=== PATIENT | male | born 1945 | race Caucasian/White ===

== ENCOUNTER → 2018-01-13 | Outpatient (CLI) | payer OTHER, MEDICARE | LOC: BMCIMAGING 07:20 | PROVIDERS: ATTEND Urology | DX: N40.0 Benign prostatic hyperplasia without lower urinary tract symptoms (principal) ==

== ENCOUNTER 2018-02-11 10:46 | Observation (INO) | payer OTHER, MEDICARE ==
[~2018-02-11 10:46] MED LIST: OPIUM/BELLADONNA ALKALO SUPP PR PRN
[2018-02-11] MEDS ORDERED: ceFAZolin 3 GM in D5W 100 ML IV ONE (11:24)
[2018-02-11] MEDS ORDERED: LIDOCAINE 1% 2 ML INJ ID PRN (11:25)
[2018-02-11] MEDS ORDERED: LR 1,000 ML IV ONE (11:25)
[2018-02-11] MEDS ORDERED: LIDOCAINE 2% JELLY 20 ML (UROJECT) ONE (12:13)
--- NOTE | 2018-02-11 12:14 | PDHPUP ---
History & Physical Update H&P update statement: This history and physical update is based on an assessment of the patient which was completed after admission or registration (within 24 hours), but prior to the surgery/procedure. H&P update: H&P reviewed & patient examined, no change in patient's condition since H&P completed
[2018-02-11] MEDS ORDERED: ceFAZolin 2 GM/DEXTROSE 100 ML IV ONE (12:15)
[2018-02-11] MEDS ORDERED: ONDANSETRON 4 MG/2 ML VIAL IVP PRN (12:17)
[2018-02-11] MEDS ORDERED: HYDROmorphONE/DILAUDID 1 MG/ML INJ IVP PRN (12:17)
[2018-02-11] MEDS ORDERED: HYDROCODONE/APAP 5/325 TAB PO PRN ×2 (12:17→15:12)
[2018-02-11] MEDS ORDERED: D5W LR 1,000 ML IV SCH (12:30)
[2018-02-11] MEDS ORDERED: ANASTROZOLE 1 MG TAB PO SCH (12:30)
--- NOTE | 2018-02-11 12:39 | PDANEPAE ---
ANE History of Present Illness BPH here for TURP ANE Past Medical History - Cardiovascular History Hx Hypertension: No Hx Arrhythmias: No Hx Chest Pain: No Hx Coronary Artery / Peripheral Vascular Disease: No Hx CHF / Valvular Disease: No Hx Palpitations: No - Pulmonary History Hx COPD: No Hx Asthma/Reactive Airway Disease: No Hx Recent Upper Respiratory Infection: No Hx Oxygen in Use at Home: No Hx Sleep Apnea: No Sleep Apnea Screening Result - Last Documented: Negative - Neurologic History Hx Cerebrovascular Accident: No Hx Seizures: No Hx Dementia: No Neurologic History Comment: degenerative disc disease - Endocrine History Hx Diabetes: No Endocrine History Comment: hypothyroid. adrenal fatigue - Renal History Hx Renal Disorders: Yes Renal History Comment: nephritis as a child. kidney stones. 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 lower back and neck pain. chronic fatigue/ fibromyalgia issues - takes low dose naltrexone - Chronic Pain History Chronic Pain: No - Surgical History Prior Surgeries: cataract surgery 12/2017 ANE Review of Systems Review of Systems: - Exercise capacity METS (RN): 4 METS ANE Patient History - Allergies Allergies/Adverse Reactions: gluten Allergy (Verified 02/11/18 11:57) GI issues, sinus issues Milk Containing Products [dairy] Allergy (Verified 02/11/18 11:57) GI issues, sinus issues - Home Medications Home Medications: Anastrozole [Arimidex 1 mg (*)] 0.5 mg PO MOWETHSA 02/05/18 [Last Taken 02/10/18 ] Hydrocortisone [Cortef 10 mg (*)] 10 mg PO DAILY 02/05/18 [Last Taken 02/10/18 07:00] Multivitamins [Multivitamin (*)] 1 each PO DAILY 02/05/18 [Last Taken 02/05/18] Naltrexone 4.5mg Capsule 4.5 mg PO DAILY 02/05/18 [Last Taken 02/07/18] Tadalafil [Cialis] 20 mg PO DAILY 02/05/18 [Last Taken 02/08/18] Tamsulosin HCl [Flomax 0.4 MG (*)] 0.4 mg PO DAILY@16 02/05/18 [Last Taken 02/10] Testosterone IM [Testosterone 100mg/ml IM inj (*)] 200 mg IM WE 02/05/18 [Last Taken 02/10/18] Thyroid,Pork [[place] Thyroid] 240 mg PO DAILY 02/05/18 [Last Taken 02/10/18] - NPO status NPO Status: no food or drink >8 hours NPO Since - Liquids (Date): 02/10/18 NPO Since - Liquids (Time): 21:00 NPO Since - Solids (Date): 02/10/18 NPO Since - Solids (Time): 19:00 - Anes Hx Anes Hx: no prior problems - Smoking Hx Smoking Status: Never smoked - Alcohol Use Alcohol Use: Rarely - Family Anes Hx Family Anes Hx: none Family Hx Anesthesia Complications: none ANE Labs/Vital Signs - Labs Result Diagrams: 02/11/18 11:45 - Vital Signs Vital Signs: reviewed preoperatively; see RN documention for details Blood Pressure: 117/79 Heart Rate: 91 Respiratory Rate: 16 O2 Sat (%): 97 Height: 185.42 cm Weight: 90.718 kg ANE Physical Exam - Airway Neck exam: FROM Mallampati Score: Class 2 Mouth exam: normal dental/mouth exam - Pulmonary Pulmonary: no respiratory distress, clear to auscultation - Cardiovascular Cardiovascular: regular rate and rhythym, no murmur, rub, or gallop - ASA Status ASA Status: III ANE Anesthesia Plan Anesthesia Plan: GA w LMA
[2018-02-11] MEDS ORDERED: OPIUM/BELLADONNA ALKALO SUPP PR ONE (13:25)
[2018-02-11] MEDS ORDERED: ACETAMINOPHEN 500 MG TAB PO PRN (15:12)
[2018-02-11] MEDS ORDERED: oxyCODONE IR 5 MG TAB PO PRN (15:12)
[2018-02-11] MEDS ORDERED: DIAZEPAM 5 MG/ML 1 ML SYR IVP PRN (15:12)
[2018-02-11] MEDS ORDERED: HYDROmorphONE/DILAUDID 2 MG/ML INJ IVP PRN (15:12)
[2018-02-11] MEDS ORDERED: NALOXONE HCL 0.4 MG/ML INJ IVP PRN ×2 (15:12→16:24)
[2018-02-11] MEDS ORDERED: fentaNYL 100 MCG/2 ML INJ IVP PRN (15:12)
--- NOTE | 2018-02-11 15:15 | POSTANESTH ---
Post Anesthetic Evaluation Cardiovascular Status: Normal, Stable, Similar to Pre-Op Cond Respiratory Status: Normal, Stable Level of Consciousness/Mental Status: Moderately Sleepy Pain Control: Adequate, Prn Tx Ordered Nausea/Vomiting Control: Adequate, Prn Tx Ordered Complications Possibly Related to Anesthesia: None Noted
--- NOTE | 2018-02-11 15:35 | POSTOPPROG ---
Post Op Note Date of Operation: 02/11/18 Surgeon: Tea Espitia Anesthesia: GET(General Endotracheal) Pre-op Diagnosis: BPH w LULTs Post-op Diagnosis: same Indication: BPH w LULTs Procedure: cystoscopy, TURP in saline Findings: trilobar hypertrophy Inf/Abcess present in the surg proc area at time of surgery?: No EBL: 100-500 Complications: none, pt tolerated procedure well Drains: Other (davenport) Specimen(s): prostate chips
[2018-02-11] MEDS ORDERED: ONDANSETRON 4 MG/2 ML VIAL ONE ×2 (15:41→15:57)
[2018-02-11] MEDS: ONDANSETRON 4 MG/2 ML VIAL IVP PRN ×2 (15:46→15:59)
[2018-02-11] MEDS ORDERED: TAMSULOSIN HCL 0.4 MG CAP PO SCH (16:00)
[2018-02-11] MEDS ORDERED: PROMETHAZINE HCL 25 MG/ML INJ ONE (16:20)
[2018-02-11] MEDS: PROMETHAZINE HCL 25 MG/ML INJ IVP PRN ×2 (16:22→16:42)
[2018-02-11] MEDS ORDERED: LR 500 ML IV ONE (16:30)
[2018-02-11] MEDS: SENNOSIDES/DOCUSATE SODIUM TAB PO SCH (20:41)
[2018-02-12] MEDS: SENNOSIDES/DOCUSATE SODIUM TAB PO SCH (08:50)
[2018-02-12] MEDS: HYDROCORTISONE 10 MG TAB PO SCH ×2 (08:53→10:47)
[2018-02-12] MEDS ORDERED: MULTIVITAMINS 1 EACH TAB PO SCH (09:00)
[2018-02-12] MEDS ORDERED: THYROID 60 MG TAB PO SCH (10:00)
--- NOTE | 2018-02-12 10:33 | SOAPPROG ---
SOAP Progress Note Assessment/Plan: Assessment: Postop TURP. Doing well. Plan: Continue CBI for 2 more hrs, then hold, have him ambulated and if urine in tube remains clear/light pink, then stop CBI. Home with davenport catheter, leg bag and overnight bag. Follow up Thursday 02/15 for davenport removal. 02/12/18 10:24 Subjective: Postop TURP Anel diet Ambulated Minimal pain, but some pain in bladder, like bladder spasm. Objective: Vital Signs Temp Pulse Resp BP Pulse Ox 37.1 C 88 16 128/75 H 94 02/12/18 08:45 02/12/18 08:45 02/12/18 08:45 02/12/18 08:45 02/12/18 08:45 Laboratory Results 02/11/18 11:45 02/11/18 02/12/18 02/13/18 05:59 05:59 05:59 Intake Total 3398 300 Output Total 3950 Balance -552 300 Gen NAD A*O CV regular Lungs NOrmal effort Abd soft Ext warm some blood around meatus, urine in tube red but clear. Manually irrigated and no clots. Restarted CBI. - Pending Discharge Pending Discharge Within 24 Hours: Yes Pending Discharge Date: 02/13/18 Pending Discharge Time: 11:00 ICD10 Worksheet Patient Problems: Problems Problem Status Onset BPH loc w urin obs/LUTS Acute - ICD10 Problem Qualifiers (1) BPH loc w urin obs/LUTS
--- NOTE | 2018-02-12 10:34 | ASMTCMCOM ---
CM Note CM Note Notes: Patient is POD #1 TURP/cystoscopy. He is normally independent and lives with his . No d/c needs are anticipated; however, Case Management is available if they arise. Current CM Discharge plan: home independent Date Signed: 02/12/2018 10:34 AM Electronically Signed By:Judy Guzman RN
--- NOTE | 2018-02-12 10:59 | ASMTLACE ---
[facility]E Length of stay for Answers: 1 day current admission Acuity / Level of Answers: No Care: Did the patient have an inpatient admission? Comorbidities - select Answers: Other Notes: Hypothyroid; GERD all that apply # of Emergency department Answers: 0 visits in the last 6 months Score: 2 Date Signed: 02/12/2018 10:58 AM Electronically Signed By:Judy Guzman RN
[2018-02-12 12:31] VITALS: BP 137/91
--- NOTE | 2018-02-12 13:32 | GOP ---
DATE OF OPERATION: 02/11/2018 SURGEON: Tea Espitia MD ANESTHESIA: General. ANESTHESIOLOGIST: Dr. Schmid. PREOPERATIVE DIAGNOSIS: Trilobar hypertrophy, prostatomegaly (prostate 106 g), and lower urinary tract symptoms. POSTOPERATIVE DIAGNOSIS: Trilobar hypertrophy, prostatomegaly (prostate 106 g) , and lower urinary tract symptoms. PROCEDURE PERFORMED: Cystoscopy and transurethral resection of prostate in saline. FINDINGS: SPECIMENS: Prostate chips. ESTIMATED BLOOD LOSS: 150 mL. INDICATIONS: The patient was referred to me from a friend whom I did a prostate surgery on, and he also had bothersome lower urinary tract symptoms. I scoped his bladder in the clinic, and he had a massive intravesical median lobe and large lateral coapting lobes. I did do a volume study, and it was 106 g per ultrasound. I did feel I would be able to do transurethral resection to open up his channel and relieve him of his symptoms. He understood the rationale for the procedure, and I also discussed the benefits and the risks. The risks include bleeding; infection; pain; injury to the urethra, the bladder , the ureters, ureteral orifices; risk of urethral stricture, bladder neck contracture; risk of retrograde ejaculation; and small risk of erectile dysfunction. There is also risk of need for subsequent procedures. He understood these and agreed to proceed. DESCRIPTION OF PROCEDURE: The patient was taken back to the operating room, placed on the operating room table in a supine position. General anesthesia induced without complication. Time-out performed. Core measures satisfied including placement of a Damaso Hugger, SCDs, and administration of 2 g Ancef antibiotics. He was brought to the end of the table, placed in a dorsal lithotomy position. All pressure points padded. Genitalia draped and prepped in standard surgical fashion with Betadine. Urethral meatus was gently dilated with Stanford sounds and then the TURIs resectoscope was advanced atraumatically into the bladder with the visual obturator. The visual obturator was then exchanged out for the TURIs resectoscope. I identified the right and left ureteral orifices. I then made a troughs at the 5 and the 7 o' clock positions on the bladder neck at the location of the ureteral orifice but well distal from the ureteral orifices at the bladder neck back to the veru. I did this on the 5 and 7 o'clock positions. I then resected the intervening tissue which was a very large intravesical median lobe, and I resected from the bladder neck back to the veru. I kept the veru in my vision at all times to make sure not to go more distal than the veru with the resection. I then resected the left and the right lateral lobes of the prostate, and it did take quite a bit of resection. I resected right lateral lobe, left lateral, and anterior tissue. I used electrocautery liberally throughout the procedure to maintain hemostasis, and he was consistently bloody with each swipe of the loop , so I did use electrocautery liberally throughout the case. I used Ellik evacuator several times to remove chips from the bladder, and at the end of the procedure hemostasis was very good. He was wide open when sitting at the veru and looking into the bladder. All prostate chips had been removed. I verified visually that I had not gone more distal than the veru, and also I had not violated the ureteral orifice. At the end of the case, I was happy. I removed the resectoscope and placed a 24-[place] 3-way catheter, irrigated that manually. The irrigant was light pink but then red but then lightened up again. Continuous bladder irrigation was started. Bell[place] was placed per rectum, and at this point I considered the procedure complete. He was awoken from anesthesia and transferred to PACU in good condition. He will be admitted overnight on continuous bladder irrigation. COMPLICATIONS: None. The patient tolerated the procedure well. /[id number]/MODL MTDD
== END 2018-02-12 16:37 | disposition home or self-care (01) ==
LOC: F3N 10:46 → F1N 17:24
PROVIDERS: ADMIT Urology; ATTEND Urology
PROC: 0VB08ZZ Excision of Prostate, Via Natural or Artificial Opening Endoscopic (ICD-10-PCS; principal; 2018-02-11 12:30)
DX: N40.1 Benign prostatic hyperplasia with lower urinary tract symptoms (principal); R33.8 Other retention of urine; E03.9 Hypothyroidism, unspecified; Z87.442 Personal history of urinary calculi; M51.9 Unspecified thoracic, thoracolumbar and lumbosacral intervertebral disc disorder; K21.9 Gastro-esophageal reflux disease without esophagitis
CPT/HCPCS: 52601; J0690; J2405; J2550